=== PATIENT | female | born 1955 ===

== ENCOUNTER 2020-12-15 07:48 | Day surgery (SDC) | payer OTHER ==
[~2020-12-15 07:48] MED LIST: ESSENTIAL DAIL1 EACH PO; FORTAMET500 MG PO; GLYXAMBI 25 MG1 EACH PO; LISINOPR PO; OMEGA 3 1,0001 EACH PO
[2020-12-15] MEDS ORDERED: MORGIDOX100 MG PO (11:12)
[2020-12-15] MEDS ORDERED: NAPR500T14 PO (11:12)
== END 2020-12-15 17:15 | disposition home or self-care (01) ==
LOC: CIR.AMB 07:48
PROVIDERS: ATTEND Obstetrics & Gynecology
DX: D25.0 Submucous leiomyoma of uterus (principal); N84.0 Polyp of corpus uteri; Z20.822 Contact with and (suspected) exposure to COVID-19